=== PATIENT | female | born 1940 | race Caucasian/White ===

== ENCOUNTER 2018-11-04 10:30 | Outpatient (RCR) | payer MEDICARE, BC, SELFPAY ==
--- NOTE | 2018-09-03 16:17 | ST.OPTN ---
Care Team Visit Care Team Role Provider Type Carlito Desir MD Primary Care Provider Non-Staff Address: [address] [place] [address], [address], [place], [address] Nj Franco Attending Provider Non-Staff Address: [address] [place] [address], [place], [address] LIVESTOCK COMMISSION AGENT Treatment Note LIVESTOCK COMMISSION AGENT Treatment Note Start: 07/15/18 15:57 Freq: Status: Active Protocol: Document 09/03/18 15:58 LOREN (Rec: 09/03/18 16:17 LOREN [id number]) Speech Pathology Treatment Note Session Time Visit Start Time 09:30 Visit Stop Time 10:15 Total Visit Minutes 45 Visit Information Visit Number 06/29 Plan of Care Dates 07/15/18 - 10/08/18 Insurance Information Medicare Setting Treatment Setting Outpatient Care Visit Type Note Type Treatment Note Next Note Type Next Note Type Treatment Note General Information General Information 77-yr-old female c/o gradual decrease in vocal quality over the years. She was seen for fiberoptic exam by Dr. Nj Franco, [employer] at [facility] in [place], and found to have unremarkable hypopharyngeal structures, including no vocal fold lesions. Slight anterior glottic gap was noted upon phonation. No asymmetry of VFs observed. Dr. Franco suggests her symptoms are most likely associated with pulmonary as well as with muscular skeletal changes. Speech therapy to improve voicing was recommended. The pt reports need for significant effort and strain at the larynx to be heard and sometimes even to produce voice. She states she has always been rather soft spoken , but people are increasingly asking her to repeat herself. She also reports a family history of asthma PMHx: Arthritis, back pain, COPD, hypothyroidism, hx of nasal polyps, Pulmonary aspergillosis. Per medical records, the pt is a former smoker, having quit 39 years ago. Subjective Observations/Patient Presentation Pt arrived on time. No new complaints. Chief Complaint(s) Voice Rehab Expectation/Goals: Patient Goals Improve vocal quality Patient Knowledge/Awareness of LIVESTOCK COMMISSION AGENT Role Excellent in Treatment Objective Short Term Goals 1. The pt will perform diaphragmatic breathing in structured tasks in 80% of opportunities to improve breath support for speech and voice and reduce vocal strain. 2. The pt will sustain vowel phonation for 13 seconds with good vocal quality x3 trials. 3. The pt will perform exercises with min-mod cuing to improve vocal quality. ( Exercises to be established in next session) Prison Goals 1. Using diaphragmatic breathing, the pt will sustain vowel phonation for 15 seconds with good vocal quality to improve breath support for speech and voice. 2. The pt will perform vocal exercises independently to facilitate HEP and promote carryover of improved vocal quality to functional tasks. 3. Using vocal strategies as needed, the pt will exhibit no greater than mild dysphonia with 75% consistency, as measured by CAPE-V and VHI perceptual assessment tools, pt report, and clinical judgement. Treatment Activities Pt produced sustained phonation on ah at start of session with increasing vocal loudness over 3 trials. Productions were recorded and played back to pt. Minimal improvement of vocal quality ( perceptual stability of pitch/ loudness/roughness) was attained with increased loudness. Education and training provided in voice exercises including forward focus and breath support/control with speech. Pt completed forward- focus production of /m/, /o/, and /u/ achieving buzz in lips and skull and improved vocal quality. Task was expanded to m-initial syllables (e.g., mo-mo-mo-.. ). Pt maintained improved vocal quality with 82% accuracy. Min cues were required to pull voice forward as the pt exhibited increasing ability to self- monitor and correct. Trained pt in breath support task using words/phrases/ sentences with /h/ in initial word prosition while maintaining forward focus of voice. Intially, the pt released much air on /h/ phonemes but improved with practice and skilled feedback and training. Using forward focus, the pt sustained phonation with significant improvment of vocal quality and stability at the end of the session. Productions were recorded and played back to pt, who verbally acknowledged improvements. Tasks were added to pt's HEP. Instructions and practice materials were provided in writing. Assessment Patient Response to Treatment Good Rehab Potential Good Impairments Identified Vocal Quality Progress Towards Goals Good Progress Assessment of Overall Progress Improving Assessment of Improvement The pt exhibited significant improvement of vocal quality with use of forward focus in phoneme and syllable productions. She demonstrated understanding of exercises and targets of both forward focus and breath control tasks. Both require reinforcement. Reviewed with Patient Goals Progress Being Made Home Exercise Program Patient/Caregiver Understanding Excellent Plan Treatment Emphasis Next Session Breath support for voice, forward phonation Therapeutic Contents Client Education Home Exercise Program Voice Training Provided Patient/Caregiver Instruction Home Exercise Program Plan of Care Questions/Concerns Therapy Recommendations Continue with Current Program
--- NOTE | 2018-09-03 16:18 | ST.OPTN ---
Care Team Visit Care Team Role Provider Type Carlito Desir MD Primary Care Provider Non-Staff Address: [address] [place] [address], [address], [place], [address] Nj Franco Attending Provider Non-Staff Address: [address] [place] [address], [place], [address] LUMBER KILN OPERATOR Treatment Note LUMBER KILN OPERATOR Treatment Note Start: 07/15/18 15:57 Freq: Status: Active Protocol: Document 09/02/18 15:58 LOREN (Rec: 09/03/18 16:17 LOREN [id number]) Speech Pathology Treatment Note Session Time Visit Start Time 09:30 Visit Stop Time 10:15 Total Visit Minutes 45 Visit Information Visit Number 06/29 Plan of Care Dates 07/15/18 - 10/08/18 Insurance Information Medicare Setting Treatment Setting Outpatient Care Visit Type Note Type Treatment Note Next Note Type Next Note Type Treatment Note General Information General Information 77-yr-old female c/o gradual decrease in vocal quality over the years. She was seen for fiberoptic exam by Dr. Nj Franco, Medical Office Administrator at [facility] in [place], and found to have unremarkable hypopharyngeal structures, including no vocal fold lesions. Slight anterior glottic gap was noted upon phonation. No asymmetry of VFs observed. Dr. Franco suggests her symptoms are most likely associated with pulmonary as well as with muscular skeletal changes. Speech therapy to improve voicing was recommended. The pt reports need for significant effort and strain at the larynx to be heard and sometimes even to produce voice. She states she has always been rather soft spoken , but people are increasingly asking her to repeat herself. She also reports a family history of asthma PMHx: Arthritis, back pain, COPD, hypothyroidism, hx of nasal polyps, Pulmonary aspergillosis. Per medical records, the pt is a former smoker, having quit 39 years ago. Subjective Observations/Patient Presentation Pt arrived on time. No new complaints. Chief Complaint(s) Voice Rehab Expectation/Goals: Patient Goals Improve vocal quality Patient Knowledge/Awareness of LUMBER KILN OPERATOR Role Excellent in Treatment Objective Short Term Goals 1. The pt will perform diaphragmatic breathing in structured tasks in 80% of opportunities to improve breath support for speech and voice and reduce vocal strain. 2. The pt will sustain vowel phonation for 13 seconds with good vocal quality x3 trials. 3. The pt will perform exercises with min-mod cuing to improve vocal quality. ( Exercises to be established in next session) Retirement Goals 1. Using diaphragmatic breathing, the pt will sustain vowel phonation for 15 seconds with good vocal quality to improve breath support for speech and voice. 2. The pt will perform vocal exercises independently to facilitate HEP and promote carryover of improved vocal quality to functional tasks. 3. Using vocal strategies as needed, the pt will exhibit no greater than mild dysphonia with 75% consistency, as measured by CAPE-V and VHI perceptual assessment tools, pt report, and clinical judgement. Treatment Activities Pt produced sustained phonation on ah at start of session with increasing vocal loudness over 3 trials. Productions were recorded and played back to pt. Minimal improvement of vocal quality ( perceptual stability of pitch/ loudness/roughness) was attained with increased loudness. Education and training provided in voice exercises including forward focus and breath support/control with speech. Pt completed forward- focus production of /m/, /o/, and /u/ achieving buzz in lips and skull and improved vocal quality. Task was expanded to m-initial syllables (e.g., mo-mo-mo-.. ). Pt maintained improved vocal quality with 82% accuracy. Min cues were required to pull voice forward as the pt exhibited increasing ability to self- monitor and correct. Trained pt in breath support task using words/phrases/ sentences with /h/ in initial word prosition while maintaining forward focus of voice. Intially, the pt released much air on /h/ phonemes but improved with practice and skilled feedback and training. Using forward focus, the pt sustained phonation with significant improvment of vocal quality and stability at the end of the session. Productions were recorded and played back to pt, who verbally acknowledged improvements. Tasks were added to pt's HEP. Instructions and practice materials were provided in writing. Assessment Patient Response to Treatment Good Rehab Potential Good Impairments Identified Vocal Quality Progress Towards Goals Good Progress Assessment of Overall Progress Improving Assessment of Improvement The pt exhibited significant improvement of vocal quality with use of forward focus in phoneme and syllable productions. She demonstrated understanding of exercises and targets of both forward focus and breath control tasks. Both require reinforcement. Reviewed with Patient Goals Progress Being Made Home Exercise Program Patient/Caregiver Understanding Excellent Plan Treatment Emphasis Next Session Breath support for voice, forward phonation Therapeutic Contents Client Education Home Exercise Program Voice Training Provided Patient/Caregiver Instruction Home Exercise Program Plan of Care Questions/Concerns Therapy Recommendations Continue with Current Program
--- NOTE | 2018-09-16 10:35 | ST.OPTN ---
Care Team Visit Care Team Role Provider Type Carlito Desir MD Primary Care Provider Non-Staff Address: [address] [place] [address], [address], [place], [address] Nj Franco Attending Provider Non-Staff Address: [address] [place] [address], [place], [address] DRYWALL FOREMAN Treatment Note DRYWALL FOREMAN Treatment Note Start: 07/15/18 15:57 Freq: Status: Active Protocol: Document 09/16/18 09:30 LOREN (Rec: 09/16/18 10:35 LOREN [id number]) Speech Pathology Treatment Note Session Time Visit Start Time 09:30 Visit Stop Time 10:15 Total Visit Minutes 45 Visit Information Visit Number 07/30 Plan of Care Dates 07/15/18 - 10/08/18 Insurance Information Medicare Setting Treatment Setting Outpatient Care Visit Type Note Type Treatment Note Next Note Type Next Note Type Re-Evaluation General Information General Information 77-yr-old female c/o gradual decrease in vocal quality over the years. She was seen for fiberoptic exam by Dr. Nj Franco, [employer]iod[employer] Engineering Manager at [facility] in [place], and found to have unremarkable hypopharyngeal structures, including no vocal fold lesions. Slight anterior glottic gap was noted upon phonation. No asymmetry of VFs observed. Dr. Franco suggests her symptoms are most likely associated with pulmonary as well as with muscular skeletal changes. Speech therapy to improve voicing was recommended. The pt reports need for significant effort and strain at the larynx to be heard and sometimes even to produce voice. She states she has always been rather soft spoken , but people are increasingly asking her to repeat herself. She also reports a family history of asthma PMHx: Arthritis, back pain, COPD, hypothyroidism, hx of nasal polyps, Pulmonary aspergillosis. Per medical records, the pt is a former smoker, having quit 39 years ago. Subjective Observations/Patient Presentation Pt arrived on time. No new complaints. [place] of [place]. Treatment will be held until her return in October. Chief Complaint(s) Voice Rehab Expectation/Goals: Patient Goals Improve vocal quality Patient Knowledge/Awareness of DRYWALL FOREMAN Role Excellent in Treatment Objective Short Term Goals 1. The pt will perform diaphragmatic breathing in structured tasks in 80% of opportunities to improve breath support for speech and voice and reduce vocal strain. 2. The pt will sustain vowel phonation for 13 seconds with good vocal quality x3 trials. 3. The pt will perform forward focus exercises using /m/ in isolation, CV syllables, words and phrases with 80% accuracy to reduce laryngeal strain and improve vocal quality. 4. The pt will read words and phrases with /m/ in initial position with forward focus resonance in 80% of opportunities to improve vocal quality. Correction Goals 1. Using diaphragmatic breathing, the pt will sustain vowel phonation for 15 seconds with good vocal quality to improve breath support for speech and voice. 2. The pt will perform vocal exercises independently to facilitate HEP and promote carryover of improved vocal quality to functional tasks. 3. Using vocal strategies as needed, the pt will exhibit no greater than mild dysphonia with 75% consistency, as measured by CAPE-V and VHI perceptual assessment tools, pt report, and clinical judgement. Treatment Activities Continued training of /h/-word /phrase production to increase control of airflow for speech , and forward focus resonance to reduce laryngeal strain and improve vocal quality. /H/ productions: Pt exhibited moderate breathiness with /h/ productions particularly with anticipation of voice phonemes (e.g., hamburger) vs stop phonemes (e.g., hatchet). Forward focus: Consistent productions of /m/ and /m/- syllables when produced at steady pitches with singing- like voice. With varied pitch to match prosodic features of conversation, hoarseness of voice increased as pitch declined. Feedback and raining provided and pt was able to maintain clear vocal quality with varying pitches in CV syllable and in single word productions. Minimal carryover to conversational speech was observed. Feedback and education provided RE target goal of conversational quality of voice. HEP: Adapted HEP tasks to incorporate natural voicing to be practiced over the next month when pt will not be seen by Therapist. She verbalized understanding. Instructions provided in writing. Assessment Patient Response to Treatment Good Rehab Potential Good Impairments Identified Vocal Quality Progress Towards Goals Good Progress Assessment of Overall Progress Improving Assessment of Improvement Pt was responsive to feedback and training with improved quality with moderate effort for breath control and forward focus. Needs reinforcement. Pt demonstrates good understanding of treatment targets, adaptations for practice, and HEP overall. Reviewed with Patient Goals Progress Being Made Home Exercise Program Patient/Caregiver Understanding Excellent Plan Treatment Emphasis Next Session Follow up in October with re- evaluation Therapeutic Contents Client Education Home Exercise Program Voice Training Provided Patient/Caregiver Instruction Home Exercise Program Plan of Care Questions/Concerns Therapy Recommendations Continue with Current Program
--- NOTE | 2018-11-04 11:48 | ST.OPRE ---
Care Team Visit Care Team Role Provider Type Carlito Desir MD Primary Care Provider Non-Staff Specialty: Internal Medicine Address: [address] [place] [address], [address], [place], [address] Email: Nj Franco Attending Provider Non-Staff Specialty: Otolaryngology (ENT) Address: [address] [place] [address], [place], [address] Email: Speech-Language Pathology Evaluation/Summary DYED RAW STOCK BLOWER FEEDER Treatment Note Start: 07/15/18 15:57 Freq: Status: Active Protocol: Document 11/04/18 11:25 LOREN (Rec: 11/04/18 11:48 LOREN [id number]) Speech Pathology Treatment Note Session Time Visit Start Time 10:30 Visit Stop Time 11:20 Total Visit Minutes 50 Visit Information Visit Number 05/01 Plan of Care Dates 11/04/18 - 01/28/19 Insurance Information Medicare Setting Treatment Setting Outpatient Care Visit Type Note Type Re-Evaluation Next Note Type Next Note Type Treatment Note General Information General Information 77-yr-old female c/o gradual decrease in vocal quality over the years. She was seen for fiberoptic exam by Dr. Nj Franco, Jde Developer at [facility] in [place], and found to have unremarkable hypopharyngeal structures, including no vocal fold lesions. Slight anterior glottic gap was noted upon phonation. No asymmetry of VFs observed. Dr. Franco suggests her symptoms are most likely associated with pulmonary as well as with muscular skeletal changes. Speech therapy to improve voicing was recommended. The pt reports need for significant effort and strain at the larynx to be heard and sometimes even to produce voice. She states she has always been rather soft spoken , but people are increasingly asking her to repeat herself. She also reports a family history of asthma PMHx: Arthritis, back pain, COPD, hypothyroidism, hx of nasal polyps, Pulmonary aspergillosis. Per medical records, the pt is a former smoker, having quit 39 years ago. Subjective Observations/Patient Presentation Pt last seen September 16. She returns now after a vacation. She reported increased pulmonary problems recently, feeling that she has junk in her throat and increased coughing which increase hoarseness of voice and difficulty in performing vocal exercises. Chief Complaint(s) Voice Rehab Expectation/Goals: Patient Goals Improve vocal quality Patient Knowledge/Awareness of DYED RAW STOCK BLOWER FEEDER Role Excellent in Treatment Objective Short Term Goals 1. The pt will perform diaphragmatic breathing in structured tasks in 80% of opportunities to improve breath support for speech and voice and reduce vocal strain. 2. The pt will sustain vowel phonation for 13 seconds with good vocal quality x3 trials. 3. The pt will perform forward focus exercises using /m/ in isolation, CV syllables, words and phrases with 80% accuracy to reduce laryngeal strain and improve vocal quality. 4. The pt will read words and phrases with /m/ in initial position with forward focus resonance in 80% of opportunities to improve vocal quality. Fellmongery Worker Goals 1. Using diaphragmatic breathing, the pt will sustain vowel phonation for 15 seconds with good vocal quality to improve breath support for speech and voice. 2. The pt will perform vocal exercises independently to facilitate HEP and promote carryover of improved vocal quality to functional tasks. 3. Using vocal strategies as needed, the pt will exhibit no greater than mild dysphonia with 75% consistency, as measured by CAPE-V and VHI perceptual assessment tools, pt report, and clinical judgement. Treatment Activities Re-education provided on sub- systems of voice (i.e., breath support, VF vibration, resonance). The Trained pt in VF adduction exercises (i.e. staccato vowel production). Pt returned demonstration with increasing clarity of vocal onset with practice. Intermittent hoarseness present, particularly as breath supply used. Pt was encouraged to take breaths as frequently as needed to maintain breath support for optimal VF vibration. Pt performed forward focus exercises including sustained /m/, and CV syllables with /m/ in initial position. Pt maintained clarity of voice in ~75% of opportunities using singing or chanting voice to maintain forward focus resonance. Immediately upon production of conversational speech, her voice again exhibited mod-severe hoarseness. Instructed pt in CV syllable productions with natural speech intonation. Given a simple sentence, the pt replaced real words/syllables with /ma/. Pt able to maintain vocal clarity in ~35% of opportunities. Glottal gomes occasionally present with reduced pitch. The pt c/o pain or discomfort at juction of soft and hard palates, which she attributed to effects of nasal spray medications, and occasionally at glottis. Breaks were provided to improve comfort and avoid overuse of voice. Given sentences of increasing length containing primarily words beginning with /m/, the pt exhibited improved vocal quality when reading sentences with chanting vs natural intonation. WIth the pt's permission, the DYED RAW STOCK BLOWER FEEDER recorded her voice with a variety of exercises and natural speech for purposes of further assessment and collaboration with another DYED RAW STOCK BLOWER FEEDER. Skilled feedback was provided. Pt was encouraged to continue HEP tasks with inclusion of VF adduction exercise. Assessment Patient Response to Treatment Good Rehab Potential Good Impairments Identified Vocal Quality Progress Towards Goals Good Progress Assessment of Overall Progress Improving Assessment of Improvement Intermittent improvement of vocal quality was observed with VF adduction and forward focus resonance tasks; however , the pt's voice remained primarily hoarse, much more increasingly so with natural spontaneous speech. Suspect impact of comorbidities may significantly limit possible improvement of the pt's vocal quality. The pt granted permission for this DYED RAW STOCK BLOWER FEEDER to consult with another DYED RAW STOCK BLOWER FEEDER, which will be done to assist in guiding POC and pt progress . Pt was responsive to feedback and training. Needs reinforcement. Pt demonstrates good understanding of treatment targets, adaptations for practice, and HEP overall . She remains highly motivated to improve vocal quality. Reviewed with Patient Goals Progress Being Made Home Exercise Program Patient/Caregiver Understanding Excellent Plan Treatment Emphasis Next Session Continue VF adduction and fwd focus resonance exercises Therapeutic Contents Client Education Home Exercise Program Voice Training Provided Patient/Caregiver Instruction Home Exercise Program Plan of Care Questions/Concerns Therapy Recommendations Continue with Current Program DYED RAW STOCK BLOWER FEEDER Voice Resonance Evaluation Start: 07/15/18 15:57 Freq: Status: Active Protocol: Document 07/15/18 16:41 LOREN (Rec: 07/15/18 16:41 LOREN [id number]) Voice and Resonance Assessment Session Time Visit Start Time 15:30 Visit Stop Time 16:17 Total Visit Minutes 47 Visit Information Visit Number Initial Evaluation Plan of Care Dates 07/15/18 - 10/08/18 Insurance Information Medicare Next Note Type Next Note Type Treatment Note Referral Referring Physician Dr. Nj Franco Reason for Referral Dysphonia Setting Setting Outpatient Care Patient History General Information 77-yr-old female c/o gradual decrease in vocal quality over the years. She was seen for fiberoptic exam by Dr. Nj Franco, Jde Developer at [facility] in [place], and found to have unremarkable hypopharyngeal structures, including no vocal fold lesions. Slight anterior glottic gap was noted upon phonation. No asymmetry of VFs observed. Dr. Franco suggests her symptoms are most likely associated with pulmonary as well as with muscular skeletal changes. Speech therapy to improve voicing was recommended. The pt reports need for significant effort and strain at the larynx to be heard and sometimes even to produce voice. She states she has always been rather soft spoken , but people are increasingly asking her to repeat herself. She also reports a family history of asthma PMHx: Arthritis, back pain, COPD, hypothyroidism, hx of nasal polyps, Pulmonary aspergillosis. Per medical records, the pt is a former smoker, having quit 39 years ago. Vision Vision Status Impaired Comments Wears prescription glasses [place] Lang[place] Language(s) Spoken in the Home [place] Occupational Status Occupation Status Retired Previous Therapy Previous Speech-Language Therapy No Subjective Subjective Pt arrived on time and provided case history. She reported having visited her size worker yesterday, who informed that the pt's long history of steroid medication for COPD treatment may impact vocal quality. Frequency of steroid was decreased yesterday from 2x/day to 1x/ day. She stated her goals for treatment to normalize her voice, increase consistency of voicing, and reduce effort to produce voice. - Laryngeal Performance S/Z Ratio S/Z Ratio 0.55 Functional for Speech Yes Reduced Laryngeal Function Relative to No Respiration Voice Handicap Index Function Subtotal 16/40 (40%) Mod-Severe Physical Subtotal 21/40 (53%) Mod-Severe Emotional Subtotal 11/40 (28%) Mild-Moderate Total Score 48/120 (40%) Severity Moderate (31-60) CAPE-V Overall Severity 60% Mod-Severe Roughness 52% Moderate Breathiness 5% Mild Strain 10% mild Pitch Pitch WNL Loudness 10% Mild Normal Resonance? Yes Other Features Observed Possible glottal gomes; improved quality with increased pitch and loudness Maximum Phonation Time MPT Norms: Women (15-25) Men (25-35) Loudness (50-60 dB); Speaking Rate: Oral Reading of Sentences (190 Words Per Minute); Oral Reading of Paragraphs (160-170 WPM); Speaking Rate in Conversation (150-250 WPM) Maximum Phonation Time 8.6 sec; increased to 12 sec after training of diaphragmatic breath Maximum Phonation Time Adequate for Speech Jitter/Shimmer Norms: Jitter (Less than or equal to 1.040% - Frequency) Norms: Shimmer (Less than or equal to 3.810% - Amplitude) Jitter 0.47% WNL Shimmer 2.39% WFL Pitch Douglas Pitch Douglas WNL Pitch Douglas Comments 129-399 Hz Breath Support Breath Support At Rest Thoracic Breath Support Sustained Phonation Thoracic Clavicular Breath Support Conversation Thoracic Breath Support Conversation Comment Reduced breath support resulting increased vocal strain Speaks on Room Air Yes Voice Pitch Range Norms: Women (100-300 Hz) Men (70-250 Hz) Fundamental Frequency Norms: Women (Mean: 225 Hz; Range: 155-334 Hz) Men ( Mean: 128 Hz; Range: 85-196 Hz) Paradoxical Vocal Fold Movement No Indications Resonance Nasal Resonance Normal Therapeutic Techniques Therapy Tactics Breath Support Increase Loudness Findings Findings Moderate-Severe Impairment Observations Vocal quality improves with increased increased pitch and with increased loudness when supported by strong breath support. Without sufficient breath support, vocal quality increases in strain and hoarseness with increased loudness. The pt exhibited vocal and overall fatigue with tasks requiring sustained phonation. Voice/Resonance Assessment Assessment Pt presents with moderate- severe dysphonia, possibly impacted by long history of steroid medication for pulmonary disease, and characterized by consistent hoarseness, occasional breathiness, intermittent strain, and mildly reduced vocal loudness. Vocal quality is impacted by reduced pulmonary function/breath support. The pt was stimulable to training in diaphragmatic breathing, as evidenced by increase in MPT from 8-12 sec, pre- to post-training. The pt experiences moderate to moderate-severe impacts from dysphonia in functional, physical and emotional areas, as measured by Voice Handicap Index. Benefit from voice therapy may be limited by extensive and continued steroid medication use and current pulmonary function; however, skilled intervention is medically necessary to increase the pt's participation and ability to communicate effectively in her functional environment, maintain quality of life, and prevent further impairment. Prognosis Rehabilitation Potential Good - Recommendations Treatment Recommended Yes Treatment Frequency/Duration 1 visit every 2 wks for 12 wks Placement Recommendation Home Therapy Recommendations Training of exercises to increase breath support for voice and speech and to improve vocal quality. Short Term Goals 1. The pt will perform diaphragmatic breathing in structured tasks in 80% of opportunities to improve breath support for speech and voice and reduce vocal strain. 2. The pt will sustain vowel phonation for 13 seconds with good vocal quality x3 trials. 3. The pt will perform exercises with min-mod cuing to improve vocal quality. ( Exercises to be established in next session) Senior Living Goals 1. Using diaphragmatic breathing, the pt will sustain vowel phonation for 15 seconds with good vocal quality to improve breath support for speech and voice. 2. The pt will perform vocal exercises independently to facilitate HEP and promote carryover of improved vocal quality to functional tasks. 3. Using vocal strategies as needed, the pt will exhibit no greater than mild dysphonia with 75% consistency, as measured by CAPE-V and VHI perceptual assessment tools, pt report, and clinical judgement. Patient/Caregiver Education Patient/Family Education Described results of evaluation Patient Understanding Patient Demonstration Patient Needs More Info
--- NOTE | 2018-11-04 11:49 | ST.OPPOC ---
Care Team Visit Care Team Role Provider Type Carlito Desir MD Primary Care Provider Non-Staff Address: [address] [place] [address], [address], [place], [address] Nj Franco Attending Provider Non-Staff Address: [address] [place] [address], [place], [address] Speech Pathology Plan of Care General Information 77-yr-old female c/o gradual decrease in vocal quality over the years. She was seen for fiberoptic exam by Dr. Nj Franco, Blueprint Clerk at [facility] in [place], 03/18/18 and found to have unremarkable hypopharyngeal structures, including no vocal fold lesions. Slight anterior glottic gap was noted upon phonation. No asymmetry of VFs observed. Dr. Franco suggests her symptoms are most likely associated with pulmonary as well as with muscular skeletal changes. Speech therapy to improve voicing was recommended. The pt reports need for significant effort and strain at the larynx to be heard and sometimes even to produce voice. She states she has always been rather soft spoken, but people are increasingly asking her to repeat herself. She also reports a family history of asthma PMHx: Arthritis, back pain, COPD, hypothyroidism , hx of nasal polyps, Pulmonary aspergillosis. Per medical records, the pt is a former smoker, having quit 39 years ago. Visit Number 05/01 Plan of Care Dates 11/04/18 - 01/28/19 Insurance Information Medicare Patient Comments Pt last seen September 16. She returns now after a vacation. She reported increased pulmonary problems recently, feeling that she has junk in her throat and increased coughing which increase hoarseness of voice and difficulty in performing vocal exercises. Chief Complaint(s) Voice Rehabilitation Expectation/ Improve vocal quality Goals: Patient Goals Patient Knowledge/Awareness of Excellent MIDDLE STITCHER Role in Treatment Short Term Goals 1. The pt will perform diaphragmatic breathing in structured tasks in 80% of opportunities to improve breath support for speech and voice and reduce vocal strain. 2. The pt will sustain vowel phonation for 13 seconds with good vocal quality x3 trials. 3. The pt will perform forward focus exercises using /m/ in isolation, CV syllables, words and phrases with 80% accuracy to reduce laryngeal strain and improve vocal quality. 4. The pt will read words and phrases with /m/ in initial position with forward focus resonance in 80% of opportunities to improve vocal quality. Residential Goals 1. Using diaphragmatic breathing, the pt will sustain vowel phonation for 15 seconds with good vocal quality to improve breath support for speech and voice. 2. The pt will perform vocal exercises independently to facilitate HEP and promote carryover of improved vocal quality to functional tasks. 3. Using vocal strategies as needed, the pt will exhibit no greater than mild dysphonia with 75% consistency, as measured by CAPE-V and VHI perceptual assessment tools, pt report, and clinical judgement. Treatment Activities Re-education provided on sub-systems of voice (i .e., breath support, VF vibration, resonance). The Trained pt in VF adduction exercises (i.e. staccato vowel production). Pt returned demonstration with increasing clarity of vocal onset with practice. Intermittent hoarseness present, particularly as breath supply used. Pt was encouraged to take breaths as frequently as needed to maintain breath support for optimal VF vibration. Pt performed forward focus exercises including sustained /m/, and CV syllables with /m/ in initial position. Pt maintained clarity of voice in ~75% of opportunities using singing or chanting voice to maintain forward focus resonance. Immediately upon production of conversational speech, her voice again exhibited mod-severe hoarseness. Instructed pt in CV syllable productions with natural speech intonation. Given a simple sentence, the pt replaced real words/syllables with /ma/. Pt able to maintain vocal clarity in ~35% of opportunities. Glottal gomes occasionally present with reduced pitch. The pt c/o pain or discomfort at juction of soft and hard palates, which she attributed to effects of nasal spray medications, and occasionally at glottis. Breaks were provided to improve comfort and avoid overuse of voice. Given sentences of increasing length containing primarily words beginning with /m/, the pt exhibited improved vocal quality when reading sentences with chanting vs natural intonation. WIth the pt's permission, the MIDDLE STITCHER recorded her voice with a variety of exercises and natural speech for purposes of further assessment and collaboration with another MIDDLE STITCHER. Skilled feedback was provided. Pt was encouraged to continue HEP tasks with inclusion of VF adduction exercise. Rehabilitation Potential Good Impairments Identified Vocal Quality Progress Towards Goals Good Progress Assessment of Improvement Intermittent improvement of vocal quality was observed with VF adduction and forward focus resonance tasks; however, the pt's voice remained primarily hoarse, much more increasingly so with natural spontaneous speech. Suspect impact of comorbidities may significantly limit possible improvement of the pt's vocal quality. The pt granted permission for this MIDDLE STITCHER to consult with another MIDDLE STITCHER, which will be done to assist in guiding POC and pt progress. Pt was responsive to feedback and training. Needs reinforcement. Pt demonstrates good understanding of treatment targets, adaptations for practice, and HEP overall. She remains highly motivated to improve vocal quality. Reviewed with Patient Goals,Progress Being Made,Home Exercise Program Patient Understanding Excellent Therapeutic Contents Client Education,Home Exercise Program,Voice Training Patient Recommendations Continue with Current Pro Please Sign and Return: I have reviewed this Plan of Care and certify that the skilled therapy services above are required to meet the patient?s needs. Physician Signature Date Printed Name and Credentials Clinical Instructor Signature Printed Name and Credentials
--- NOTE | 2019-02-23 11:10 | ST.OPDS ---
Visit Care Team Role Provider Type Carilto Desir MD Primary Care Provider Non-Staff Address: [address] [place] [address], [address], [place], [address] Nj Franco Attending Provider Non-Staff Address: [address] [place] [address], [place], [address] SEAMARK ADVANCED OPERATOR MAINTAINER Treatment Note SEAMARK ADVANCED OPERATOR MAINTAINER Treatment Note Start: 07/15/18 15:57 Freq: Status: Active Protocol: Document 02/23/19 11:07 LOREN (Rec: 02/23/19 11:10 LOREN [id number]) Speech Pathology Treatment Note Setting Treatment Setting Outpatient Care Visit Type Note Type Discharge Summary General Information General Information 77-yr-old female c/o gradual decrease in vocal quality over the years. She was seen for fiberoptic exam by Dr. Nj Franco, Motorcycle Designer at [facility] in [place], and found to have unremarkable hypopharyngeal structures, including no vocal fold lesions. Slight anterior glottic gap was noted upon phonation. No asymmetry of VFs observed. Dr. Franco suggests her symptoms are most likely associated with pulmonary as well as with muscular skeletal changes. Speech therapy to improve voicing was recommended. The pt reports need for significant effort and strain at the larynx to be heard and sometimes even to produce voice. She states she has always been rather soft spoken , but people are increasingly asking her to repeat herself. She also reports a family history of asthma PMHx: Arthritis, back pain, COPD, hypothyroidism, hx of nasal polyps, Pulmonary aspergillosis. Per medical records, the pt is a former smoker, having quit 39 years ago. Subjective Observations/Patient Presentation The pt was last seen November 04. She cancelled an appt since then d/t other medical complications and is now outside POC dates. Over course of treatment, the pt made small progress, limited by comorbidities. She will be discharged from skilled intervention at this time. Plan Therapy Recommendations Discharge from Speech Therapy Reason for Discharge Pt discontinued attendance d/t other medical complications.
== END 2018-11-04 11:30 ==
LOC: SP 10:30
PROVIDERS: PCP Internal Medicine; Visit Provider Otolaryngology
DX: R49.0 Dysphonia (principal)
CPT/HCPCS: 92507; 92520; 92524

== ENCOUNTER → 2020-07-27 10:57 | Outpatient (CLI) | payer MEDICARE, BC, SELFPAY ==
[2020-07-27 12:19] LABS: Alanine Aminotransferase 9 IU/L (<35); Albumin 4.4 g/dL (3.5-5.0); Albumin Globulin Ratio 1.6 (1.0-2.8); Alkaline Phosphatase 109 U/L (38-126); Aspartate Aminotransferase 30 IU/L (14-36); Bilirubin Unconjugated 0.6 mg/dL (0.0-1.1); Globulin 2.7 g/dL (1.7-4.1); HEMOLYSIS < 15 (0-50); Total Protein 7.1 g/dL (6.3-8.2)
[2020-07-31 08:12] LABS: Immunoglobulin E 433 IU/mL (6-495)
[2020-08-02 09:12] LABS: Bilirubin Total 0.5 mg/dL (0.2-1.3)
== END ==
PROVIDERS: PCP Internal Medicine; Referring Provider Internal Medicine Critical Care Medicine; Visit Provider Internal Medicine Critical Care Medicine
DX: B44.81 Allergic bronchopulmonary aspergillosis (principal)
CPT/HCPCS: 36415; 80076; 82785

== ENCOUNTER → 2020-08-24 09:38 | Outpatient (CLI) | payer MEDICARE, BC, SELFPAY ==
[2020-08-24 19:18] LABS: Alanine Aminotransferase 8 IU/L (<35); Albumin 3.8 g/dL (3.5-5.0); Albumin Globulin Ratio 1.7 (1.0-2.8); Alkaline Phosphatase 102 U/L (38-126); Aspartate Aminotransferase 28 IU/L (14-36); Bilirubin Total 0.3 mg/dL (0.2-1.3); Bilirubin Unconjugated 0.3 mg/dL (0.0-1.1); Globulin 2.2 g/dL (1.7-4.1); HEMOLYSIS < 15 (0-50)
[2020-08-29 12:30] LABS: Immunoglobulin E 478 IU/mL (6-495)
== END ==
PROVIDERS: PCP Internal Medicine; Visit Provider Internal Medicine Critical Care Medicine
DX: T14.90XA Injury, unspecified, initial encounter (principal); W10.2XXA Fall (on)(from) incline, initial encounter
CPT/HCPCS: 80076; 82785

== ENCOUNTER → 2021-03-13 11:57 | Outpatient (CLI) | payer MEDICARE, BC, SELFPAY ==
[2021-03-13 19:49] LABS: Add Manual Diff / Slide Review NO; Basophils Absolute Auto 0 /uL (0-100); Basophils Percent Auto 0.8 % (0-2); Eosinophils Absolute Auto 600 /uL (0-450); Eosinophils Percent Auto 10.8 % (2-4); Hematocrit 42.5 % (36-46); Hemoglobin 13.9 g/dL (12.0-16.0); Lymphocytes Absolute Auto 1300 /uL (1100-4500); Lymphocytes Percent Auto 25.4 % (25-40); Mean Corpuscular HGB Conc 32.7 % (30-36); Mean Corpuscular Hemoglobin 29.6 PG (26-34); Mean Corpuscular Volume 90.6 fL (80-100); Monocytes Absolute Auto 400 /uL (0-900); Monocytes Percent Auto 8.3 % (3-14); Neutrophils Absolute Auto 2800 /uL (1500-7000); Neutrophils Percent Auto 54.7 % (50-75); Platelet Count 245 X10^3/uL (150-400); Red Blood Cell Count 4.69 X10^6/uL (4.0-5.2); Red Cell Distribution Width 13.5 % (11.6-14.8); White Blood Cell Count 5.1 X10^3/uL (4.5-11.0)
[2021-03-13 20:29] LABS: Alanine Aminotransferase 9 IU/L (<35); Albumin 4.2 g/dL (3.5-5.0); Albumin Globulin Ratio 1.6 (1.0-2.8); Alkaline Phosphatase 103 U/L (38-126); Aspartate Aminotransferase 28 IU/L (14-36); BUN Creatinine Ratio 26.1 (6-22); Bilirubin Total 0.5 mg/dL (0.2-1.3); Blood Urea Nitrogen 18 mg/dL (7-17); Calcium 9.4 mg/dL (8.4-10.2); Carbon Dioxide 30 mmol/L (22-32); Chloride 103 mmol/L (98-107); Estimated Glomerular Filt Rate > 60.0 mL/min (>60); Globulin 2.6 g/dL (1.7-4.1); Glucose 91 mg/dL (80-110); HEMOLYSIS 21 (0-50); Potassium 4.2 mmol/L (3.4-5.1); Sodium 140 mmol/L (137-145); Total Protein 6.8 g/dL (6.3-8.2)
[2021-03-13 20:50] LABS: TSH w/ Reflex to FT4 0.35 uIU/mL (0.47-4.68)
[2021-03-14 00:31] LABS: Free T4, Direct Thyroxine 1.27 ng/dL (0.78-2.19)
== END ==
PROVIDERS: PCP Physician Assistant; Referring Provider Physician Assistant; Visit Provider Physician Assistant
DX: E03.9 Hypothyroidism, unspecified (principal); R14.0 Abdominal distension (gaseous); R19.8 Other specified symptoms and signs involving the digestive system and abdomen
CPT/HCPCS: 80053; 84439; 84443; 85025

== ENCOUNTER → 2021-03-14 13:08 | Outpatient (CLI) | payer MEDICARE, BC, SELFPAY ==
[2021-03-17 11:58] LABS: Fecal Immunochemical Test Negative (Negative)
== END ==
PROVIDERS: PCP Physician Assistant; Referring Provider Physician Assistant; Visit Provider Physician Assistant
DX: R14.0 Abdominal distension (gaseous) (principal); R19.8 Other specified symptoms and signs involving the digestive system and abdomen
CPT/HCPCS: 82274

== ENCOUNTER → 2021-05-03 11:58 | Outpatient (CLI) | payer MEDICARE, BC, SELFPAY ==
[2021-05-07 00:06] LABS: Immunoglobulin E 583 IU/mL (6-495)
== END ==
PROVIDERS: PCP Physician Assistant; Referring Provider Internal Medicine Critical Care Medicine; Visit Provider Internal Medicine Critical Care Medicine
DX: B44.81 Allergic bronchopulmonary aspergillosis (principal)
CPT/HCPCS: 82785

== ENCOUNTER → 2021-06-29 13:02 | Outpatient (CLI) | payer MEDICARE, BC, SELFPAY ==
[2021-07-03 20:27] LABS: Immunoglobulin E 650 IU/mL (6-495)
== END ==
PROVIDERS: PCP Physician Assistant; Visit Provider Internal Medicine Critical Care Medicine
DX: J45.40 Moderate persistent asthma, uncomplicated (principal)
CPT/HCPCS: 82785

== ENCOUNTER → 2021-08-03 13:34 | Outpatient (CLI) | payer MEDICARE, BC, SELFPAY ==
[2021-08-08 00:42] LABS: Immunoglobulin E 559 IU/mL (6-495)
== END ==
PROVIDERS: PCP Physician Assistant; Visit Provider Internal Medicine Critical Care Medicine
DX: J45.40 Moderate persistent asthma, uncomplicated (principal)
CPT/HCPCS: 82785

== ENCOUNTER → 2021-08-11 08:31 | Outpatient (CLI) | payer MEDICARE, BC, SELFPAY ==
[2021-08-11 20:04] LABS: Add Manual Diff / Slide Review NO; Basophils Absolute Auto 0 /uL (0-100); Basophils Percent Auto 0.5 % (0-2); Eosinophils Absolute Auto 600 /uL (0-450); Eosinophils Percent Auto 13.8 % (2-4); Hematocrit 40.6 % (36-46); Hemoglobin 13.8 g/dL (12.0-16.0); Lymphocytes Absolute Auto 1500 /uL (1100-4500); Lymphocytes Percent Auto 32.1 % (25-40); Mean Corpuscular HGB Conc 33.9 % (30-36); Mean Corpuscular Volume 88.4 fL (80-100); Monocytes Absolute Auto 500 /uL (0-900); Monocytes Percent Auto 11.5 % (3-14); Neutrophils Absolute Auto 1900 /uL (1500-7000); Neutrophils Percent Auto 42.1 % (50-75); Platelet Count 215 X10^3/uL (150-400); Red Blood Cell Count 4.59 X10^6/uL (4.0-5.2); White Blood Cell Count 4.6 X10^3/uL (4.5-11.0)
[2021-08-11 20:18] LABS: TSH w/ Reflex to FT4 0.82 uIU/mL (0.47-4.68)
[2021-08-17 17:02] LABS: Cholesterol 242 mg/dL (140-199); HDL Cholesterol 95 mg/dL (40-60); LDL Cholesterol Calculated 135 mg/dL (<100); Triglycerides 60 mg/dL (35-150)
== END ==
PROVIDERS: PCP Physician Assistant; Visit Provider Physician Assistant
DX: E03.9 Hypothyroidism, unspecified (principal); D72.9 Disorder of white blood cells, unspecified
CPT/HCPCS: 80061; 84443; 85025

== ENCOUNTER → 2022-02-08 13:33 | Outpatient (CLI) | payer MEDICARE, BC, SELFPAY ==
[2022-02-08 19:48] LABS: Add Manual Diff / Slide Review NO; Basophils Absolute Auto 100 /uL (0-100); Basophils Percent Auto 1.1 % (0-2); Eosinophils Absolute Auto 700 /uL (0-450); Eosinophils Percent Auto 13.1 % (2-4); Hematocrit 40.2 % (36-46); Hemoglobin 13.7 g/dL (12.0-16.0); Lymphocytes Absolute Auto 1400 /uL (1100-4500); Lymphocytes Percent Auto 24.6 % (25-40); Mean Corpuscular HGB Conc 34.2 % (30-36); Mean Corpuscular Hemoglobin 30.1 PG (26-34); Mean Corpuscular Volume 88.3 fL (80-100); Monocytes Absolute Auto 300 /uL (0-900); Monocytes Percent Auto 6.2 % (3-14); Neutrophils Absolute Auto 3000 /uL (1500-7000); Platelet Count 203 X10^3/uL (150-400); Red Blood Cell Count 4.55 X10^6/uL (4.0-5.2); Red Cell Distribution Width 14.4 % (11.6-14.8); White Blood Cell Count 5.5 X10^3/uL (4.5-11.0)
[2022-02-09 21:00] LABS: Cholesterol,Total 184 mg/dL (100-199); HDL Cholesterol 94 mg/dL (>39); LDL Cholesterol Cal 81 mg/dL (0-99); Triglycerides 45 mg/dL (0-149); VLDL Cholesterol Cal 9 mg/dL (5-40)
== END ==
PROVIDERS: PCP Physician Assistant; Visit Provider Family Medicine
DX: E78.00 Pure hypercholesterolemia, unspecified (principal); D72.9 Disorder of white blood cells, unspecified
CPT/HCPCS: 80061; 85025

== ENCOUNTER → 2022-02-12 15:01 | Outpatient (CLI) | payer MEDICARE, BC, SELFPAY ==
--- NOTE | 2022-02-12 15:04 | DI.MRI.S_ITS ---
PROCEDURE: MR LUMBAR SPINE WO CON INDICATIONS: abnormal lumbar xray, suspect canal stenosis TECHNIQUE: Noncontrast sagittal T1 spin echo and T2 fast echo, sagittal STIR, and T2 fast spin echo through the lumbar spine. In cases with scoliosis, additional coronal T2 fast spin echo may be performed. COMPARISON: [facility] ([place]), CR, XR LUMBAR SPINE 2-3V, 08/25/2021, 13:57. FINDINGS: Image quality: Excellent. Alignment and Curvature: There is 4 mm grade 1 retrolisthesis of L1 on L2. 5 mm grade 1 anterolisthesis of L4 on L5 is seen. Bone Marrow: There is superior endplate depression of the L1 vertebral body with mild loss of vertebral body height that appears increased when compared to the radiographs from 08/25/2021. Associated osseous edema is present. No suspicious marrow replacing process. A Schmorl's node is noted at the inferior endplate of T12. Spinal Cord: Conus medullaris terminates at the L1 level. Visualized cord demonstrates normal signal and size. Paraspinous Soft Tissues: No paravertebral masses. Grade 2-3 fatty infiltration of the paraspinous musculature. Diverticula are seen in the included colon. T12-L1: Disc desiccation and loss of disc space height without significant spinal canal stenosis or neural foraminal narrowing. L1-L2: Grade 1 retrolisthesis of L1 on L2 with severe disc space narrowing and posterior disc-osteophyte complex. There is mild bilateral facet hypertrophy. Findings result in severe right and moderate to severe left neural foraminal narrowing without significant spinal canal stenosis. L2-L3: Disc desiccation and mild circumferential disc bulging with mild bilateral facet hypertrophy and buckling of the ligamentum flavum, which results in mild bilateral neural foraminal narrowing. L3-L4: There is disc desiccation and mild circumferential disc bulging as well as mild bilateral facet hypertrophy and buckling of the ligamentum flavum, which result in mild bilateral neural foraminal narrowing and mild spinal canal narrowing. L4-L5: Grade 1 anterolisthesis of L5 on S1 with uncovering of the disc space as well as disc desiccation and mild circumferential disc bulging. Severe bilateral facet hypertrophy and buckling of the ligamentum flavum. Findings result in severe narrowing of the spinal canal with effacement of the lateral recesses and moderate bilateral neural foraminal narrowing. L5-S1: There is disc desiccation and mild loss of disc space height with posterior disc bulging and moderate bilateral facet hypertrophy and buckling of the ligamentum flavum. Findings result in mild narrowing of the spinal canal and mild bilateral neural foraminal narrowing. IMPRESSION: 1. At L4-5, grade 1 anterolisthesis and severe facet hypertrophy result in severe spinal canal narrowing with effacement of the lateral recesses, and moderate bilateral neural foraminal narrowing. 2. At L1-2, grade 1 retrolisthesis and superimposed degenerative changes result in severe right neural foraminal narrowing and moderate to severe left neural foraminal narrowing. 3. Additional [id number] multilevel degenerative disc disease and facet hypertrophy as described in detail in the body of the report. Approved by: Zachariah Fonseca M.D. on 02/12/2022 at 16:46
== END ==
PROVIDERS: PCP Physician Assistant; Referring Provider Physician Assistant; Visit Provider Physician Assistant
DX: M47.816 Spondylosis without myelopathy or radiculopathy, lumbar region (principal); M48.061 Spinal stenosis, lumbar region without neurogenic claudication; M48.07 Spinal stenosis, lumbosacral region; M51.16 Intervertebral disc disorders with radiculopathy, lumbar region; M51.17 Intervertebral disc disorders with radiculopathy, lumbosacral region; M43.16 Spondylolisthesis, lumbar region
CPT/HCPCS: 72148

== ENCOUNTER → 2022-07-13 14:38 | Outpatient (CLI) | payer MEDICARE, BC, SELFPAY | PROVIDERS: PCP Physician Assistant; Visit Provider Physician Assistant Medical | DX: R30.0 Dysuria (principal) | CPT/HCPCS: 87086 ==

== ENCOUNTER → 2023-03-07 12:34 | Outpatient (CLI) | payer MEDICARE, BC, SELFPAY ==
[2023-03-07 19:10] LABS: HEMOLYSIS < 15 (0-50); Iron 95 ug/dL (37-170)
[2023-03-07 19:11] LABS: Alanine Aminotransferase 10 IU/L (<35); Albumin 4.4 g/dL (3.5-5.0); Albumin Globulin Ratio 1.5 (1.0-2.8); Alkaline Phosphatase 110 U/L (38-126); Aspartate Aminotransferase 29 IU/L (14-36); BUN Creatinine Ratio 28.8 (6-22); Bilirubin Total 0.8 mg/dL (0.2-1.3); Blood Urea Nitrogen 17 mg/dL (7-17); Carbon Dioxide 30 mmol/L (22-32); Chloride 99 mmol/L (98-107); Estimated Glomerular Filt Rate > 60 mL/min (>60); Glucose 84 mg/dL (80-110); HEMOLYSIS < 15 (0-50); Potassium 4.2 mmol/L (3.4-5.1); Sodium 136 mmol/L (137-145); Total Protein 7.4 g/dL (6.3-8.2)
[2023-03-07 19:21] LABS: Add Manual Diff / Slide Review NO; Basophils Absolute Auto 100 /uL (0-100); Eosinophils Absolute Auto 700 /uL (0-450); Eosinophils Percent Auto 11.2 % (2-4); Hematocrit 42.2 % (36-46); Hemoglobin 14.1 g/dL (12.0-16.0); Lymphocytes Absolute Auto 1600 /uL (1100-4500); Mean Corpuscular HGB Conc 33.4 % (30-36); Mean Corpuscular Hemoglobin 29.3 PG (26-34); Mean Corpuscular Volume 87.7 fL (80-100); Monocytes Absolute Auto 500 /uL (0-900); Neutrophils Absolute Auto 3700 /uL (1500-7000); Neutrophils Percent Auto 55.8 % (50-75); Percent Iron Saturation 26 % (15-50); Platelet Count 273 X10^3/uL (150-400); Red Blood Cell Count 4.82 X10^6/uL (4.0-5.2); Red Cell Distribution Width 14.5 % (11.6-14.8); Total Iron Binding Capacity 359 ug/dL (265-497); Transferrin 325 mg/dL (206-381); White Blood Cell Count 6.7 X10^3/uL (4.5-11.0)
[2023-03-07 21:29] LABS: Vitamin B12 632 pg/mL (239-931)
== END ==
PROVIDERS: PCP Physician Assistant; Visit Provider Family Medicine
DX: R53.83 Other fatigue (principal)
CPT/HCPCS: 80053; 82607; 82746; 83540; 83550; 85025

== ENCOUNTER → 2023-08-19 14:03 | Outpatient (CLI) | payer MEDICARE, BC, SELFPAY ==
[2023-08-19 20:09] LABS: Add Manual Diff / Slide Review NO; Basophils Absolute Auto 100 /uL (0-100); Basophils Percent Auto 1.1 % (0-2); Eosinophils Absolute Auto 600 /uL (0-450); Eosinophils Percent Auto 8.4 % (2-4); Hematocrit 40.9 % (36-46); Hemoglobin 13.6 g/dL (12.0-16.0); Lymphocytes Absolute Auto 1600 /uL (1100-4500); Lymphocytes Percent Auto 22.7 % (25-40); Mean Corpuscular HGB Conc 33.2 % (30-36); Mean Corpuscular Hemoglobin 29.6 PG (26-34); Mean Corpuscular Volume 89.3 fL (80-100); Monocytes Absolute Auto 500 /uL (0-900); Monocytes Percent Auto 7.8 % (3-14); Neutrophils Absolute Auto 4100 /uL (1500-7000); Platelet Count 236 X10^3/uL (150-400); Red Blood Cell Count 4.58 X10^6/uL (4.0-5.2); Red Cell Distribution Width 14.7 % (11.6-14.8); White Blood Cell Count 6.9 X10^3/uL (4.5-11.0)
[2023-08-19 20:35] LABS: HEMOLYSIS < 15 (0-50); Iron 94 ug/dL (37-170)
[2023-08-19 20:45] LABS: Alanine Aminotransferase 9 IU/L (<35); Albumin 4.4 g/dL (3.5-5.0); Albumin Globulin Ratio 1.8 (1.0-2.8); Alkaline Phosphatase 98 U/L (38-126); Aspartate Aminotransferase 29 IU/L (14-36); BUN Creatinine Ratio 29.1 (6-22); Bilirubin Total 0.7 mg/dL (0.2-1.3); Blood Urea Nitrogen 23 mg/dL (7-17); Calcium 9.5 mg/dL (8.4-10.2); Carbon Dioxide 30 mmol/L (22-32); Chloride 105 mmol/L (98-107); Estimated Glomerular Filt Rate > 60 mL/min (>60); Globulin 2.5 g/dL (1.7-4.1); Glucose 91 mg/dL (80-110); HEMOLYSIS 17 (0-50); Potassium 4.2 mmol/L (3.4-5.1); Sodium 139 mmol/L (137-145); Total Protein 6.9 g/dL (6.3-8.2)
[2023-08-19 20:49] LABS: Percent Iron Saturation 25 % (15-50); Total Iron Binding Capacity 369 ug/dL (265-497); Transferrin 282 mg/dL (206-381)
[2023-08-19 21:37] LABS: Folate 9.5 ng/mL (2.76-20.0); Vitamin B12 613 pg/mL (239-931)
== END ==
PROVIDERS: Family Medicine; PCP Physician Assistant
DX: R53.83 Other fatigue (principal)
CPT/HCPCS: 80053; 82607; 82746; 83540; 83550; 85025

== ENCOUNTER → 2024-09-17 10:48 | Outpatient (CLI) | payer MEDICARE, BC, SELFPAY ==
--- NOTE | 2024-09-17 10:50 | DI.MRI.S_ITS ---
PROCEDURE: MR LUMBAR SPINE WO CON INDICATIONS: lumbar radiculopathy TECHNIQUE: Noncontrast sagittal T1 spin echo and T2 fast echo, sagittal STIR, and T2 fast spin echo through the lumbar spine. In cases with scoliosis, additional coronal T2 fast spin echo may be performed. COMPARISON: [facility], MR, MR LUMBAR SPINE WO CON, 02/12/2022, 15:07. FINDINGS: Image quality: Excellent. Alignment and Curvature: There is mild retrolisthesis at L1-L2. Mild grade 1 anterolisthesis is seen at L4-L5. Mild levoconvex scoliotic curvature is noted. Bone Marrow: Marrow is of normal overall signal. No acute vertebral body compression fractures. There is a remote L1 compression deformity seen, with 30% loss of height anteriorly. The degree of loss of vertebral body height is similar to 2021. The previously seen bone marrow edema has resolved. Spinal Cord: Conus medullaris terminates at the L1-L2 level. Visualized cord demonstrates normal signal and size. Paraspinous Soft Tissues: No paravertebral masses. T12-L1: The disc height is well-preserved. Loss of disc signal is seen at this level. No neural foraminal narrowing or central canal narrowing can be seen. Stable from the prior study. L1-L2: At least moderate loss of disc height and disc signal can be seen. Reactive marrow endplate changes are seen which are hypointense on T1-weighted imaging and hyperintense on T2 weighted imaging, which is most consistent with edema (Modic type I changes). Moderate generalized disc bulge is seen. There is a superimposed central disc osteophyte protrusion. Mild facet joint hypertrophy is seen. There is moderate to severe right-sided and at least moderate left-sided neural foraminal narrowing. There is a degree of compression seen upon the exiting right L1 nerve root. Mild central canal narrowing is seen. When comparison is made with the prior images, these findings are similar. L2-L3: The disc height is well-preserved. Loss of disc signal is seen at this level. Mild generalized disc bulge is seen. Mild to moderate facet hypertrophy is seen. Associated hypertrophy of the ligamentum flavum can be seen. Mild bilateral neural foraminal narrowing is seen. Mild central canal narrowing is seen. No significant change from the prior. L3-L4: The disc height is well-preserved. Loss of disc signal is seen at this level. Mild to moderate disc bulge is seen, with a mild central disc protrusion. Moderate facet joint hypertrophy is seen. Associated hypertrophy of the ligamentum flavum can be seen. There is moderate left-sided and at least moderate right-sided neural foraminal narrowing. At least moderate central canal narrowing is seen. There is mild progression compared to 2022. L4-L5: Moderate loss of disc height is seen. Loss of disc signal is seen. Moderate generalized disc bulge is seen. There is a superimposed central disc protrusion. Moderate to severe facet hypertrophy is seen. Associated hypertrophy of the ligamentum flavum can be seen. There is at least moderate bilateral neural foraminal narrowing, left worse than right. Severe central canal narrowing is seen, as on series 6, image 26. These degenerative changes are mildly progressed compared to the prior. L5-S1: The disc height and disk signal are relatively well-preserved. Mild generalized disc bulge is seen. Moderate facet joint hypertrophy is seen. There is mild right-sided and no significant left-sided neural foraminal narrowing. Mild central canal narrowing is seen. When comparison is made with the prior images, these findings are similar. IMPRESSION: Multiple levels of degenerative change can be seen, which are overall worst at the L4-L5 level. Mild overall progression of degenerative change compared to 2022. Prior L1 compression deformity, with stable loss of vertebral body height. The previously seen bone marrow edema has resolved. Dictated by: Jim Roland M.D. on 09/18/2024 at 5:36 Approved by: Jim Roland M.D. on 09/18/2024 at 5:42
== END ==
PROVIDERS: PCP Family Medicine; Referring Provider Family Medicine; Visit Provider Family Medicine
DX: M48.061 Spinal stenosis, lumbar region without neurogenic claudication (principal); M51.16 Intervertebral disc disorders with radiculopathy, lumbar region; M47.26 Other spondylosis with radiculopathy, lumbar region; M43.8X6 Other specified deforming dorsopathies, lumbar region; M43.16 Spondylolisthesis, lumbar region
CPT/HCPCS: 72148